=== PATIENT | female | born 1965 | race Caucasian/White ===

== ENCOUNTER → 2016-07-23 | Outpatient (CLI) | payer MEDICARE ==
[~2016-07-23] MED LIST: CLON1TAB PO; DIVA250ER PO; LEVO75TA3 PO; THIO10CA PO
[2016-07-23 13:29] LABS: AUTOMATED NEUTROPHIL # 2.2 TH/MM3 (1.8-7.7); BASOPHIL % 1.3 % (0.0-2.0); EOSINOPHIL # 0.1 TH/MM3 (0-0.4); EOSINOPHIL % 2.2 % (0.0-4.0); HEMATOCRIT 37.5 % (35.0-46.0); HEMO FLAGS DIFF FINAL; LYMPH % 27.4 % (9.0-44.0); MEAN CORPUSCULAR HEMOGLOBIN 29.4 PG (27.0-34.0); MEAN CORPUSCULAR HGB CONC 34.2 % (32.0-36.0); MONO % 9.9 % (0.0-8.0); NEUT % 59.2 % (16.0-70.0); PLATELET COUNT 276 TH/MM3 (150-450); RED BLOOD COUNT 4.36 MIL/MM3 (4.00-5.30); RED CELL DISTRIBUTION WIDTH 13.9 % (11.6-17.2); WHITE BLOOD COUNT 3.8 TH/MM3 (4.0-11.0)
[2016-07-23 13:53] LABS: ANION GAP 8 MEQ/L (5-15); AST (GOT) 25 U/L (15-37); BICARBONATE 27.8 MEQ/L (21.0-32.0); BLOOD UREA NITROGEN 5 MG/DL (7-18); CHLORIDE 95 MEQ/L (98-107); GLOMERULAR FILTRATION RATE 92 ML/MIN (>89); POTASSIUM 4.3 MEQ/L (3.5-5.1); SODIUM (NA) 131 MEQ/L (136-145)
[2016-07-23 14:03] LABS: ALKALINE PHOSPHATASE 54 U/L (45-117); ALT (GPT) 34 U/L (10-53); FREE T4 1.17 NG/DL (0.76-1.46); LDL CHOLESTEROL 93 MG/DL (0-99); TOTAL BILIRUBIN ADULT 0.3 MG/DL (0.2-1.0)
[2016-07-23 17:30] LABS: HEMOGLOBIN A1a 0.9 %; HEMOGLOBIN A1b 1.9 %; HEMOGLOBIN Ao 85.8 %; HEMOGLOBIN LA1C 1.8 %; HEMOGLOBIN P3 3.4 %
== END ==
LOC: PLAB 09:00
PROVIDERS: ATTEND Family Medicine
DX: E03.9 Hypothyroidism, unspecified (principal); R63.1 Polydipsia; F31.9 Bipolar disorder, unspecified
CPT/HCPCS: 36415; 80053; 80061; 83036; 84439; 84443; 85025

== ENCOUNTER → 2017-03-17 | Outpatient (CLI) | payer MEDICARE ==
[2017-03-17 13:36] LABS: INDIRECT BILIRUBIN 0.2 MG/DL (0.0-0.8); TOTAL BILIRUBIN ADULT 0.3 MG/DL (0.2-1.0)
== END ==
LOC: PLAB 10:09
PROVIDERS: ATTEND Psychiatry & Neurology Psychiatry
DX: F20.9 Schizophrenia, unspecified (principal)
CPT/HCPCS: 36415; 80076; 80164; 84443

== ENCOUNTER 2017-05-05 14:03 | Emergency (ER) | payer MEDICARE ==
[~2017-05-05] VITALS: Ht 170.2 cm; Wt 94.0 kg
[2017-05-05 14:13] VITALS: BP 153/102; PULSE 78; RESP 18; TEMP 99.1; O2SAT 99
[2017-05-05] MEDS ORDERED: [UNRECOGNIZED DRUG - OTHER] TOPICAL (16:11)
--- NOTE | 2017-05-05 16:13 | PD ---
HPI . Chapped lips Chief Complaint: Skin Problem Time Seen by Provider: 15:55 Travel History International Travel<30 days: No Contact w/Intl Traveler<30days: No Traveled to known affect area: No History of Present Illness HPI 51-year-old female patient presents emergency department for evaluation of chapped lips 2 weeks. Patient states she got some cheap lip all of the store to help with her chapped lips and they're only getting worse. Patient denies any fever, chills, chest pain, shortness of breath, nausea, vomiting, diarrhea. Patient states the pain associated with the chapped lips is worse when she eats spicy food. PFSH Past Medical History Bipolar Disorder: Yes Diminished Hearing: No Psychiatric: Yes (PT HAS EXTENSIVE PSYCH HX.) Tetanus Vaccination: Unknown Influenza Vaccination: No ?: Not Menopausal: No Social History Alcohol Use: No Tobacco Use: No Substance Use: No Allergies-Medications (Allergen,Severity, Reaction): Coded Allergies: No Known Allergies (Verified , 09/28/09) Reported Meds & Prescriptions Reported Meds & Active Scripts Active [id number] (Lanolin (Topical)) 1 Cre Cre 1 Applic TOPICAL BID Reported Depakote ER (Divalproex Sodium) 250 Mg Rebel 250 Mg PO TID Thiothixene 10 Mg Cap 10 Mg PO DIRECTED Clonazepam 1 Mg Tab 1 Mg PO HS Levothyroxine (Levothyroxine Sodium) 75 Mcg Tab 75 Mcg PO DAILY Review of Systems Except as stated in HPI: all other systems reviewed are Neg Physical Exam Narrative GENERAL: Well-nourished, well-developed 51-year-old female patient in no acute distress. Nontoxic appearing. SKIN: Dry, flaky lips noted. Focused skin assessment warm/dry. HEAD: Normocephalic. Atraumatic. EYES: No scleral icterus. No injection or drainage. NECK: Supple, trachea midline. No JVD or lymphadenopathy. CARDIOVASCULAR: Regular rate and rhythm without murmurs, gallops, or rubs. RESPIRATORY: Breath sounds equal bilaterally. No accessory muscle use. GASTROINTESTINAL: Abdomen soft, non-tender, nondistended. MUSCULOSKELETAL: No cyanosis, or edema. BACK: Nontender without obvious deformity. No CVA tenderness. Data Data Last Documented VS Vital Signs Date Time Temp Pulse Resp B/P (MAP) Pulse Ox O2 Delivery O2 Flow Rate FiO2 05/05/17 16:21 05/05/17 14:13 99.1 78 18 99 Room Air Orders Orders Ed Discharge Order (05/05/17 16:13) MDM Medical Decision Making Medical Screen Exam Complete: Yes Emergency Medical Condition: Yes Differential Diagnosis Differential diagnoses include but not limited to contact dermatitis, Chapped lips, dry skin Narrative Course 51-year-old female presents to emergency room for evaluation of the Lips 2 weeks. Patient denies any fever, chills, chest pain, shortness breath, malaise , nausea, vomiting, diarrhea. Patient states the pain is worse when she is eating spicy food. Patient given a prescription for lanolin to apply to the lips to promote healing. Patient discharged home with instructions to follow- up with her primary care but return to emergency Department with any emergent condition. Diagnosis Primary Impression: Chapped lips Referrals: Primary Care Physician Additional Instructions: Please return to emergency department if your symptoms return or worsen. Follow up with your primary care provider. Apply lanolin to chapped lips twice a day. Avoid spicy or hot foods and develops heal. Med/Other Pt SpecificInfo: Prescription(s) given Scripts Lanolin (Topical) ([id number]) 1 Cre Cre 1 APPLIC TOPICAL BID, #1 Prov: Myriam Mcfadden 05/05/17 Disposition: 01 DISCHARGE HOME Condition: Stable Myriam Mcfadden May 05, 2017 16:13
== END 2017-05-05 16:22 | disposition home or self-care (01) ==
LOC: PHED 14:03 → PHEFT 16:22
DX: T69.8XXA Other specified effects of reduced temperature, initial encounter (principal); X31.XXXA Exposure to excessive natural cold, initial encounter
CPT/HCPCS: 99283

== ENCOUNTER → 2017-06-24 | Outpatient (CLI) | payer MEDICARE ==
[~2017-06-24] MED LIST changes: +[UNRECOGNIZED DRUG - OTHER] TOPICAL
[2017-06-24 13:21] LABS: AUTOMATED NEUTROPHIL # 2.5 TH/MM3 (1.8-7.7); BASOPHIL # 0.1 TH/MM3 (0-0.2); BASOPHIL % 1.8 % (0.0-2.0); HEMOGLOBIN 13.3 GM/DL (11.6-15.3); LYMPH % 24.5 % (9.0-44.0); LYMPHOCYTE # 0.9 TH/MM3 (1.0-4.8); MEAN CELL VOLUME 88.5 FL (80.0-100.0); MEAN CORPUSCULAR HEMOGLOBIN 30.3 PG (27.0-34.0); MEAN CORPUSCULAR HGB CONC 34.2 % (32.0-36.0); MEAN PLATELET VOLUME 9.1 FL (7.0-11.0); MONO % 9.2 % (0.0-8.0); MONOCYTE # 0.4 TH/MM3 (0-0.9); NEUT % 63.5 % (16.0-70.0); PLATELET COUNT 313 TH/MM3 (150-450); WHITE BLOOD COUNT 3.9 TH/MM3 (4.0-11.0)
[2017-06-24 13:48] LABS: ALBUMIN 4.3 GM/DL (3.4-5.0); AST (GOT) 21 U/L (15-37); BLOOD UREA NITROGEN 7 MG/DL (7-18); CALCIUM 9.1 MG/DL (8.5-10.1); CHLORIDE 94 MEQ/L (98-107); GLOMERULAR FILTRATION RATE 88 ML/MIN (>89); GLUCOSE,FASTING 78 MG/DL (74-99); SODIUM (NA) 130 MEQ/L (136-145)
[2017-06-24 13:49] LABS: CHOLESTEROL 186 MG/DL (120-200)
[2017-06-24 13:58] LABS: ALKALINE PHOSPHATASE 62 U/L (45-117); ALT (GPT) 34 U/L (10-53); CHOLESTEROL/ HDL RATIO 3.12 RATIO; FREE T4 1.01 NG/DL (0.76-1.46); HDL CHOLESTEROL 59.6 MG/DL (40.0-60.0); LDL CHOLESTEROL 111 MG/DL (0-99); TOTAL BILIRUBIN ADULT 0.3 MG/DL (0.2-1.0); TOTAL PROTEIN 8.6 GM/DL (6.4-8.2); TRIGLYCERIDES 75 MG/DL (42-150)
[2017-06-24 14:42] LABS: HEMOGLOBIN A1C 5.5 % (4.3-6.0)
== END ==
LOC: PLAB 09:00
PROVIDERS: ATTEND Psychiatry & Neurology Psychiatry
DX: E03.9 Hypothyroidism, unspecified (principal); R63.1 Polydipsia; E87.1 Hypo-osmolality and hyponatremia; F31.30 Bipolar disorder, current episode depressed, mild or moderate severity, unspecified
CPT/HCPCS: 36415; 80053; 80061; 83036; 84439; 84443; 85025